=== PATIENT | female | born 1950 | race Caucasian/White ===

== ENCOUNTER → 2021-05-24 05:06 | Emergency (ER) | payer BC, MEDICARE ==
[~2021-05-24] VITALS: Ht 167.6 cm; Wt 81.0 kg
[2021-05-24 05:06] VITALS: BP 149/79
== END | disposition left against medical advice (07) ==
LOC: ER 05:06
DX: M25.512 Pain in left shoulder (principal); Z53.21 Procedure and treatment not carried out due to patient leaving prior to being seen by health care provider

== ENCOUNTER → 2021-06-22 | Day surgery (SDC) | payer BC, MEDICARE ==
[~2021-06-22] VITALS: Ht 157.5 cm; Wt 74.0 kg
[~2021-06-22] MED LIST: APIX5TAB PO; CALC-31 PO; CRAN500T3 PO; FLEC100T PO; GLUC-11 PO; IV RINGERS,LACTATED 1000ML 1,000 ML IV SCH; LIDOCAINE 2% PF 5 ML VIAL. ONE; MAGN500C10 PO; POTA-121 PO; PROPOFOL 10 MG/ML (20ML) VIAL. IV ONE
[2021-06-22 08:29] VITALS: BP 157/70
[2021-06-22 09:56] VITALS: BP 123/64
--- NOTE | 2021-06-22 23:43 | HP ---
ADMIT DATE: 06/22/2021 REASON: Diverticulitis and diarrhea related to diverticulitis. HISTORY OF PRESENT ILLNESS: A 71-year-old female whose past medical history is significant for organic heart disease, arrhythmias, diverticulitis, seen for interval colon exam. Bowel habits formed up. Weight is stable with her diet regimen. There has been no bleeding. She is otherwise without additional complaints. PAST MEDICAL HISTORY: Diverticulitis, cardiac arrhythmias. ALLERGIES: None. MEDICATIONS: Eliquis, vitamin D, cranberry, flecainide, glucosamine. FAMILY AND SOCIAL HISTORY: Significant for diabetes and NE with her mother and ovarian cancer in sister. Nonsmoker and nondrinker. PAST SURGICAL HISTORY: She is status post cholecystectomy. REVIEW OF SYSTEMS: Per records. PHYSICAL EXAMINATION: VITAL SIGNS: Temperature is 98.4, pulse 69, respirations 20. LUNGS: Clear. CARDIOVASCULAR: Reveals an S1, S2, without S3, S4 or appreciable murmur. ABDOMEN: Soft abdomen, normal bowel sounds, without appreciable hepatosplenomegaly. EXTREMITIES: Reveals no cyanosis, clubbing or edema. IMPRESSION AND PLAN: Diverticulitis with self-limited diarrhea may be acute self-limited colitis, segmental colitis related diverticular disease, inflammatory bowel disease, colon cancer, resolving infectious enteritis. Therefore, recommended interval colonoscopy. Risks and benefits of procedure including risk of hemorrhage and perforation were discussed. The patient is willing to proceed at this time. ZBIGNIEW/LEIGHTON/ADDISON DR: Tristian TID: [id number]
== END | disposition home or self-care (01) ==
LOC: ENDOS 07:26
PROVIDERS: ATTEND Internal Medicine Gastroenterology
DX: K57.32 Diverticulitis of large intestine without perforation or abscess without bleeding (principal); R19.7 Diarrhea, unspecified; K57.30 Diverticulosis of large intestine without perforation or abscess without bleeding; K64.0 First degree hemorrhoids; I48.91 Unspecified atrial fibrillation; M19.90 Unspecified osteoarthritis, unspecified site; Z90.49 Acquired absence of other specified parts of digestive tract; Z90.710 Acquired absence of both cervix and uterus; Z98.890 Other specified postprocedural states; Z79.899 Other long term (current) drug therapy
CPT/HCPCS: 45378; J2704